=== PATIENT | male | born 2000 | race Caucasian/White ===

== ENCOUNTER 2023-10-04 05:17 | Emergency (ER) | payer OTHER, SELFPAY ==
--- NOTE | ~2023-10-04 | CT_ITS ---
Noncontrast CT scan of the cervical spine Technique: Multiple contiguous axial [address] images of the cervical spine were obtained and rec onstructed in 2D sagittal and coronal planes on the acquisition scanner. Dose reduction technique was used on this scan by utilizing automated exposure control, adjustment of the mA and/or kV according to patient size. The dose-length product (DLP) was 506.53 mGy-cm. Clinical History: Pain Findings: No fractures or dislocations. Unremarkable visualized bony structures. The intervertebral disc spaces are preserved. No prevertebral soft tissue swelling. Impression: No fracture or subluxation of the cervical spine. Reviewed, dictated and finalized at location . Impression: No fracture or subluxation of the cervical spine.
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
--- NOTE | ~2023-10-04 | XR_ITS ---
Right wrist Technique: PA, oblique, lateral, and ulnar deviation views were obtained. Clinical History: Pain Findings: No acute fracture or dislocation is seen. Osseous alignment is anatomic. Joint spaces are p reserved. Soft tissues are unremarkable. Impression: Unremarkable right wrist radiographs. Reviewed, dictated and finalized at location . Impression: Unremarkable right wrist radiographs.
[2023-10-04 05:20] VITALS: BP 132/91; PULSE 86; RESP 18; TEMP 37.1; O2SAT 97
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
[2023-10-04 05:45] LABS: Appearance Urine Clear (Clear); Bilirubin Urine Negative (Negative); Blood Urine Negative (Negative); Color Urine Yellow (Yellow); Glucose Urine UA Negative (Negative); Ketones Urine Negative (Negative); Leukocyte Esterase Ur Negative LEU/UL (Negative); Nitrate Urine Negative (Negative); Protein Urine Negative (Negative); Urobilinogen Urine 0.2 mg/dL (0.2-1.0)
[2023-10-04 05:46] LABS: Add Urine Microscopic? NO
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
--- NOTE | 2023-10-04 07:02 | PC.NURSE ---
DR EMERSON AT BEDSIDE FOR PATIENT UPDATE. PATIENT AWAKE AND ALERT WITHOUT DISTRESS. REPORT GIVEN TO NELIDA AVERY FOR CONTINUATION OF CARE ON DAY SHIFT.
[2023-10-04 07:11] VITALS: BP 121/73; PULSE 76; RESP 16; TEMP 36.9; O2SAT 99
== END 2023-10-04 07:11 | disposition home or self-care (01) ==
PROVIDERS: Emergency Provider Internal Medicine Critical Care Medicine
DX: M25.531 Pain in right wrist (principal); M25.551 Pain in right hip; V40.5XXA Car driver injured in collision with pedestrian or animal in traffic accident, initial encounter
CPT/HCPCS: 72125; 73110; 74176; 81003; 99284